=== PATIENT | female | born 1960 | race Caucasian/White ===

== ENCOUNTER 2020-12-06 06:09 | Emergency (ER) | payer OTHER ==
[~2020-12-06] VITALS: Ht 162.6 cm; Wt 49.9 kg
== END 2020-12-06 07:05 | disposition home or self-care (01) ==
LOC: ER 06:09
DX: F41.9 Anxiety disorder, unspecified (principal); S96.912A Strain of unspecified muscle and tendon at ankle and foot level, left foot, initial encounter; I10 Essential (primary) hypertension; Z59.0 Homelessness; X58.XXXA Exposure to other specified factors, initial encounter
CPT/HCPCS: 99283; A9270